=== PATIENT | male | born 1965 | race Caucasian/White ===

== ENCOUNTER → 2024-04-22 07:31 | Outpatient (REF) | payer BC, SELFPAY | LOC: DHCBC/DCA 07:31 | PROVIDERS: ATTENDING PHYSICIAN Internal Medicine Cardiovascular Disease; FAMILY PHYSICIAN Family Medicine | DX: I25.10 Atherosclerotic heart disease of native coronary artery without angina pectoris (principal) | CPT/HCPCS: 78452; 93017; A9500 ==